=== PATIENT | female | born 1935 | race Caucasian/White ===

== ENCOUNTER 2016-10-18 06:32 | Day surgery (SDC) | payer MEDICARE ==
--- NOTE | 2016-10-17 09:25 | HP ---
DATE OF CLINIC: 10/10/2016 LLUVIA REYES : 1935 PLANNED PROCEDURE: Left Knee Arthroscopic Partial Medial Meniscectomy DATE OF SURGERY: October 18, 2016 SURGEON: Eric Agee M.D. HISTORY OF PRESENT ILLNESS Lluvia Reyes is a 81 year old female. * Medication list reviewed with patient allergy list reviewed with patient. This is a 81-year-old female referred by Sal Tejada for complaints of right knee pain. It has been hurting her since March. She had a twisting injury while doing yard work and had immediate difficulty with weight bearing. It has improved substantially since then. She has been taking ibuprofen and occasionally some hydrocodone that she got from her primary care doctor. She uses a cane for a walker occasionally, she is not using today. She relates that she has pain over the medial side of her knee as well as some mechanical symptoms and that it is really limiting her ability to participate in her desired level of activity. She has been gaining weight and is upset about that and wants to try to be more active. After discussion and review of treatment options, both operative and non-operative, she has elected to proceed with surgery and presents today preoperatively. PAST MEDICAL AND SURGICAL HISTORY: No change in her past medical or surgical history from her previous visits. CURRENT MEDICATION * AmLODIPine Besylate 2.5 MG Tablet 1 once a day 30 days, 0 refills * Aspirin 325 MG Tablet 1 every bedtime 0 days, 0 refills * Levothyroxine Sodium 88 MCG Tablet 1 once a day 60 days, 0 refills * Losartan Potassium 100 MG Tablet 1 once a day 90 days, 0 refills * Vitamin D 1000 UNIT Tablet as directed 0 days, 0 refills PAST MEDICAL/SURGICAL HISTORY Reported: Medical: Cardiac history, history of Arthritis, Thyroid Disorder, Hypertension, Osteoporosis, Vertigo, and Asthma. Surgical / Procedural: Back Surgery 2001. SOCIAL HISTORY Behavioral: Quit smoking Quit 31 years ago, previously smoked 1 pack for 5 days. Smoking status: Former smoker. Alcohol: Alcohol Rarely. ALLERGIES * No Known Allergies FAMILY HISTORY 3 children living Family medical history Mother: Heart Disease, OA, Cancer, Thyroid Disease REVIEW OF SYSTEMS No recent constitutional symptoms to include fevers and chills. No recent cardiovascular symptoms to include chest pain or palpitations. No recent respiratory symptoms to include shortness of breath or recent infections. PHYSICAL FINDINGS * Vitals taken 10/10/2016 01:03 pm BP-Sitting R 126/69 mmHg Pulse Rate-Sitting 84 bpm Temp-Oral 97.4 F Height 61 in Weight 200 lbs 6.4 oz Body Mass Index 37.9 kg/m2 Body Surface Area 1.89 m2 Pain Level 2 Ears, Nose, Throat: * ENT: normal. Lungs: * Clear to auscultation. Cardiovascular: Heart Rate and Rhythm: * Normal. Abdomen: * Normal. Neurological: Motor: * Dominant Hand = Right Hand. Patient is a well-developed, well-nourished female in no acute distress. They are awake, alert and conversant throughout the encounter. She is obese. CARDIOVASCULAR: Intact peripheral pulses on bilateral lower extremities. No significant edema on inspection of bilateral lower extremities. NEUROLOGIC: Patient had intact coordinated composite motion of the bilateral lower extremities and sensation intact to light touch in all distributions of bilateral lower extremities. PSYCHIATRIC: Patient was oriented to person, place and time and displayed appropriate mood and affect during the encounter. SKIN: Exam of the skin on bilateral lower extremities showed no significant scars, lesions, rashes or masses. FOCUSED MUSCULOSKELETAL EXAM: She walks with mild antalgia on the right side. She has normal resting station of the hip, knee and ankle. Her knee shows normal alignment. She has no significant erythema or ecchymosis. She has a very mild effusion. Range of motion is from 0 to about 110 degrees, stable to varus and valgus stress, anterior and posterior drawer. She has tenderness along the medial joint line, not the lateral joint line. She does have a mechanical click and pain in the medial side of the knee Irma's maneuver. Muscle strength is 5/5 in both flexion and extension. She has a warm and well perfused leg distally with intact sensation and a normal resting tone. IMAGING: A review of her previous x-rays shows mild medial compartment narrowing. MRI shows a posterior horn medial meniscus tear as well as degenerative changes. ASSESSMENT A 81-year-old female with a right knee medial meniscus tear in the context of some mild osteoarthritis. THERAPY * Patient fall risk screen negative. * Patient eligible for fall risk assessment. * Patient received fall risk assessment. PLAN * Derang of unsp medial mensc due to old tear/inj, unsp knee Percocet 5-325 MG TABS, 1 every 4 - 6 hours as needed, 14 days, 0 refills * Knee Arthroscopy (Left) with PMM CARE TEAM Gladys Jaramillo MD [facility] SURGICAL CONSENT We have discussed surgical options including left knee arthroscopic PMM and non-operative management. The patient was counseled in detail regarding the diagnosis, treatment options available, prognosis of each treatment option and the potential risks and complications. The risks of surgery include, but are not limited to, anesthetic , neurovascular complications, pulmonary embolism, deep vein thrombosis, wound dehiscence, failure of any or all of the discussed procedures, infection of the joint or surrounding soft tissue, need for revision surgery, chronic pain, limitations in activities of daily living, inability to return to work, and loss of normal range of motion or functional use of the extremity. There is the possibility of failure over time that may require additional operative or non-operative treatment. The patient acknowledged that there are a number of perioperative risks not mentioned here and would still like to proceed. The patient is aware of and understands these risks, and wishes to proceed with the proposed surgical procedure and other procedures as indicated at the time of surgery. We will have the patient see their PCP for a preoperative medical risk assessment. The preoperative instructions were reviewed with the patient and all questions were answered. PB/sg
[2016-10-18] MEDS ORDERED: LACTATED RINGERS 1,000 ML ONE (06:42)
[2016-10-18] MEDS ORDERED: CEFAZOLIN SODIUM 2 GRAM PREMIX 100 ML IV ONE (06:43)
[2016-10-18] MEDS ORDERED: IV START KIT ONE (06:43)
[2016-10-18] MEDS ORDERED: CEFAZOLIN SODIUM 2 GRAM PREMIX 100 ML IV PRN (07:00)
[2016-10-18] MEDS ORDERED: BUPIVACAINE 0.5% W/EPI SDV 30 ML VIAL ONE (08:39)
[2016-10-18] MEDS ORDERED: PROPOFOL 20 ML IV ONE (08:43)
[2016-10-18] MEDS ORDERED: LIDOCAINE 2% (PRES FREE) 5 ML VIAL ONE (08:43)
[2016-10-18] MEDS ORDERED: FENTANYL 100 MCG/2 ML VIAL ONE (08:44)
[2016-10-18] MEDS ORDERED: EPHEDRINE SULFATE UD SYR 25 MG 25 MG/5 ML SYRINGE IV ONE ×2 (09:01→09:16)
[2016-10-18] MEDS ORDERED: DEXAMETHASONE SOD PHOS 4 MG/1 ML VIAL ONE (09:03)
[2016-10-18] MEDS ORDERED: ONDANSETRON 4 MG/2ML 2 ML VIAL ONE (09:03)
[2016-10-18] MEDS ORDERED: ATROPINE SULFATE 0.4 MG/1 ML VIAL IV PRN (09:07)
[2016-10-18] MEDS ORDERED: MEPERIDINE 25 MG/ML SYRINGE IV PRN (09:07)
[2016-10-18] MEDS ORDERED: ONDANSETRON 4 MG/2ML 2 ML VIAL IV PRN ×2 (09:07→10:16)
[2016-10-18] MEDS ORDERED: PROMETHAZINE HCL 25 MG/ML VIAL IM PRN (09:07)
[2016-10-18] MEDS ORDERED: HYDRALAZINE HCL 20 MG/1 ML VIAL IV PRN (09:07)
[2016-10-18] MEDS ORDERED: LABETALOL HCL 5 MG/ML 20ML VIAL IV PRN (09:07)
[2016-10-18] MEDS ORDERED: NALOXONE HCL 0.4 MG/ML VIAL IV PRN (09:07)
[2016-10-18] MEDS ORDERED: FENTANYL 100 MCG/2 ML VIAL IV PRN (09:07)
[2016-10-18] MEDS ORDERED: LACTATED RINGERS 1,000 ML IV SCH ×2 (09:15→10:16)
[2016-10-18] MEDS ORDERED: HYDROMORPHONE HCL 2 MG/ML SYRINGE ONE (09:22)
--- NOTE | 2016-10-18 09:43 | PCMBPN ---
Brief Post Op Note: Date of Procedure: 10/18/16 Start Time: 0900 Preoperative Diagnosis: 1. Right Knee Medial Meniscus Tear Postoperative Diagnosis: 1. Same Procedure: Right Knee Arthroscopy and PMM Surgeon: Eric Agee MD Assist:RUSS Kinney Anesthesia: Obie Whitt CRNA Findings: See above Condition: Stable Complications: None IV Fluids: 500 mLs of LR Urine Output: 0 mLs Estimated Blood Loss: 25 mLs Tourniquet Time: 15min at 250mmHg Specimens: N/A Implants: none Drains: [N/A]
[2016-10-18] MEDS ORDERED: MEPERIDINE 25 MG/ML SYRINGE ONE (10:15)
[2016-10-18] MEDS ORDERED: ACETAMINOPHEN 160 MG/5 ML ORAL.SOLN UDCUP PO PRN (10:16)
[2016-10-18] MEDS ORDERED: OXYCODONE HCL 5 MG TABLET PO PRN (10:16)
[2016-10-18] MEDS ORDERED: HYDROMORPHONE HCL 1 MG/ML SYRINGE IV PRN (10:16)
[2016-10-18] MEDS ORDERED: DIPHENHYDRAMINE HCL 50 MG/1 ML VIAL IV PRN (10:16)
--- NOTE | 2016-10-24 10:08 | OP ---
Coni TORRES : 1935 [id number] DATE OF PROCEDURE: October 18, 2016 PREOPERATIVE DIAGNOSIS: Right knee medial meniscus tear. POSTOPERATIVE DIAGNOSIS: Right knee medial meniscus tear. PROCEDURE PERFORMED: RIGHT KNEE ARTHROSCOPY WITH PARTIAL MEDIAL MENISCECTOMY. SURGEON: Eric Agee M.D. LOWERATOR OPERATOR: Carter Kitchen P.A.-C. ANESTHESIA: Obie Whitt CAllenR.N.Sadie SPECIMENS: No material was sent to the laboratory. ESTIMATED BLOOD LOSS: 25 mm FLUIDS REPLACED: 500 mL of crystalloid. TOURNIQUET TIME: 15 minutes at 250 mmHg. URINE OUTPUT: None. IMPLANTS: None. DRAINS: No drains. INDICATIONS: This is a 81-year-old female who complains of pain and mechanical symptoms in the right knee that have been increasing over time and have not responded to a course of nonoperative measures. Patient has an exam and imaging studies which are consistent with the above. Given failure to improve with nonoperative measures patient was consented for right knee arthroscopy with partial medial meniscectomy. The risks, benefits and alternatives were discussed at length with that patient and they elected to proceed with surgery. Informed consent was obtained and documented in the chart and the patient was placed on the schedule the first available convenience. DESCRIPTION OF PROCEDURE: The patient was identified in the preoperative holding area where they were marked with an indelible marker by the operating surgeon. Patient was taken to the operating room where they were placed in the supine position the operating room table. A general anesthesia was induced, perioperative antibiotics were administered and a well padded pre-calibrated nonsterile tourniquet was placed on the right upper thigh. Patient was prepped and draped in the usual sterile fashion for surgery. An operative time out was performed and confirmed by all members of the operative team confirming the patient identity, procedure to be performed and the laterally for that procedure. All necessary personnel, equipment and implants were in place and there were no safety concerns. The leg was elevated and exsanguinated using the Esmarch bandage and the tourniquet was inflated to 250 mmHg. A standard lateral portal was created and the 30 degree viewing arthroscope was inserted into the knee. Optics were directed anteromedially and a medial portal was localized and created in a standard fashion. A probe was inserted through this medial portal and used in completion of the diagnostic arthroscopy with the following findings: The medial compartment showed a tear of the posterior horn of the medial meniscus. Some areas of full thickness cartilage loss and some grade 2 and 3 changes over the medial femoral condyle. The lateral compartment was largely intact. The patellofemoral compartment was largely intact. The ACL and PCL were intact. After completion of diagnostic arthroscopy the probe was exchanged for an arthroscopic biter and this was used to resect back the medial meniscus to a stable rim. This was then exchanged for arthroscopic resector shaver which was used to complete the partial medial meniscectomy and perform a shaving chondroplasty of some small areas over the medial tibial plateau. At this point we felt that we had addressed the patient's intra-articular pathology and so the camera and instruments were removed from the knee. The portal sites were closed with #4-0 Nylons; 20 mL of 0.5% Marcaine was injected into the knee for perioperative analgesia. A sterile dressing of Xeroform, fluffs, ABDs, web roll and then an JASON bandage from ankle to the thigh was applied. The tourniquet was deflated, the drapes were removed. The patient was awakened from anesthesia and extubated in the operating room without difficulty. Patient was transferred to a stretcher and taken postoperatively to the post anesthesia care unit in stable condition. There were no observed intraoperative complications during this procedure. Job [id number] Cc: [facility]
== END 2016-10-18 11:57 | disposition home or self-care (01) ==
LOC: SDC 06:32
PROVIDERS: ATTEND Orthopaedic Surgery
PROC: 0SBC4ZZ Excision of Right Knee Joint, Percutaneous Endoscopic Approach (ICD-10-PCS; principal; 2016-10-18)
DX: M23.221 Derangement of posterior horn of medial meniscus due to old tear or injury, right knee (principal); M17.9 Osteoarthritis of knee, unspecified; X50.1XXA Overexertion from prolonged static or awkward postures, initial encounter; Y93.H2 Activity, gardening and landscaping; Z79.82 Long term (current) use of aspirin; Z87.891 Personal history of nicotine dependence; I10 Essential (primary) hypertension; E07.9 Disorder of thyroid, unspecified; M81.0 Age-related osteoporosis without current pathological fracture; J45.909 Unspecified asthma, uncomplicated; R42 Dizziness and giddiness; M19.90 Unspecified osteoarthritis, unspecified site; E66.9 Obesity, unspecified; Z68.37 Body mass index [BMI] 37.0-37.9, adult
CPT/HCPCS: 29881; J2175; J1170; J3010; J1100; A9270; J2405; J7120; J0690